=== PATIENT | female | born 1950 | race Caucasian/White ===

== ENCOUNTER 2017-07-23 06:46 | Day surgery (SDC) | payer MEDICARE, BC ==
[2017-07-23] VITALS (10 sets, daily range): BP systolic 105–168; BP diastolic 32–88; PULSE 45–69; TEMP 97.5–98.4
[~2017-07-23] VITALS: Ht 167.6 cm; Wt 70.9 kg
[~2017-07-23 06:46] MED LIST: B-12 100 MCG PO; COREG12.5 MG PO; DOXYCYCLINE 10100 MG PO; FLEXERIL 1010 MG/TAB PO; HCTZ12.5TAB PO; MACRODANTIN100 PO; MULTI VITAMINS1 TAB PO; PRINIVIL10 MG PO; PROAIR HFA0.09 MG/AC IH; ULTRAM 50MG TAB50 MG PO; VITAMIN B-625 MG PO
[2017-07-23] MEDS ORDERED: COREG12.5 MG PO (08:31)
[2017-07-23] MEDS ORDERED: SINGULAIR 110 MG/TAB PO (08:31)
[2017-07-23] MEDS ORDERED: NORCO 325 MG-7.1 TAB PO ×2 (08:32→08:33)
[2017-07-23] MEDS ORDERED: VOLTAREN 75 DR75 MG PO (08:32)
[2017-07-24 02:06] VITALS: BP 116/43; PULSE 68; TEMP 99
[2017-07-24 04:50] VITALS: BP 116/49; PULSE 70; TEMP 98.4
== END 2017-07-24 11:25 | disposition home or self-care (01) ==
LOC: SDCO 06:46 → SURG 15:35 → SDCO 07-24 11:25
DX: C50.411 Malignant neoplasm of upper-outer quadrant of right female breast (principal); I10 Essential (primary) hypertension; M81.0 Age-related osteoporosis without current pathological fracture; Z86.14 Personal history of Methicillin resistant Staphylococcus aureus infection; M19.90 Unspecified osteoarthritis, unspecified site; M51.36 Other intervertebral disc degeneration, lumbar region; G89.29 Other chronic pain; K44.9 Diaphragmatic hernia without obstruction or gangrene; Z87.891 Personal history of nicotine dependence; Z88.0 Allergy status to penicillin; Z88.2 Allergy status to sulfonamides; Z88.3 Allergy status to other anti-infective agents; Z96.653 Presence of artificial knee joint, bilateral; Z96.649 Presence of unspecified artificial hip joint; Z90.710 Acquired absence of both cervix and uterus
CPT/HCPCS: OP; A9541; J1100; J1170; J1885; J2405; J2704; J3010; J7120; Q9968

== ENCOUNTER 2020-12-15 04:07 | Emergency (ER) | payer MEDICARE, BC ==
[~2020-12-15] VITALS: Ht 167.6 cm; Wt 65.9 kg
[~2020-12-15 04:07] MED LIST changes: +NORCO 325 MG-7.1 TAB PO; +SINGULAIR 110 MG/TAB PO; +VOLTAREN 75 DR75 MG PO
[2020-12-15 04:09] VITALS: TEMP 97.4
[2020-12-15 04:56] LABS: BASO # 0.1 (0.0-0.2); BASO % 1.1 % (0.0-2.0); EOS # 0.2 (0.0-0.7); EOS % 2.3 % (0-4.0); GRAN # 3.5 (1.4-6.5); GRAN % 52.6 % (42.2-75.2); LYMPH # 2.1 (1.2-3.4); LYMPH % 32.1 % (20.0-51.0); MEAN CELL VOLUME 97 fl (80.0-100.0); MEAN CORPUSCULAR HEMOGLOBIN 32 pg (27.0-31.0); MEAN CORPUSCULAR HGB CONC 33 g/dl (33.0-37.0); MEAN PLATELET VOLUME 8.7 fl (7.4-10.4); MONO # 0.8 (0.1-0.6); MONO % 11.6 % (1.7-9.3); PLATELET COUNT 358 K/mm3 (130-400); RED BLOOD COUNT 3.44 M/mm3 (4.10-5.30); REDCELL DISTRIBUTION WIDTH-CV 12.6 % (11.5-14.5)
[2020-12-15 04:57] LABS: HEMATOCRIT 33.3 % (37.0-47.0)
[2020-12-15 05:06] LABS: TROPONIN-I < 0.012 ng/mL (0.000-0.035)
[2020-12-15 05:10] LABS: ALANINE AMINOTRANSFERASE 18 U/L (4-34); ALBUMIN 3.8 gm/dL (3.5-5.0); ALKALINE PHOSPHATASE 43 U/L (50-136); ANION GAP 3 mmol/L (7-16); AST,SGOT 26 U/L (15-37); BILIRUBIN,TOTAL 0.2 mg/dL (0.0-1.0); BLOOD UREA NITROGEN 26 mg/dL (7-17); CALCIUM 9.1 mg/dL (8.4-10.2); CARBON DIOXIDE 26 mmol/L (22-30); CHLORIDE 96 mmol/L (98-107); CREATININE, serum 0.98 (0.52-1.25); GLUCOSE 115 mg/dL (74-106); POTASSIUM 4.3 mmol/L (3.4-5.0); SODIUM 125 mmol/L (137-145); TOTAL PROTEIN 6.9 gm/dL (6.4-8.2)
[2020-12-15 05:15] LABS: C-REACTIVE PROTEIN < 0.5 mg/dL (0.0-0.9)
[2020-12-15] MEDS ORDERED: ZOFRAN ODT4 MG PO (05:50)
[2020-12-15] MEDS ORDERED: ANTIVERT 25MG25 MG PO (05:50)
[2020-12-15 05:56] VITALS: BP 158/78; PULSE 65
== END 2020-12-15 06:01 | disposition home or self-care (01) ==
LOC: COL.ER 04:07
PROVIDERS: Emergency Medicine
DX: R42 Dizziness and giddiness (principal); E87.1 Hypo-osmolality and hyponatremia; I10 Essential (primary) hypertension; Z79.899 Other long term (current) drug therapy
CPT/HCPCS: J2550; J7030

== ENCOUNTER → 2022-08-07 | Outpatient (CLI) | payer MEDICARE, BC ==
[~2022-08-07] MED LIST changes: +ANTIVERT 25MG25 MG PO; +ZOFRAN ODT4 MG PO
== END ==
LOC: COL.RAD 07:31
DX: M79.604 Pain in right leg (principal)

== ENCOUNTER → 2022-08-29 | Outpatient (CLI) | payer MEDICARE, BC | LOC: MC.RAD 08:17 | DX: R92.1 Mammographic calcification found on diagnostic imaging of breast (principal) ==